=== PATIENT | female | born 1945 | race Caucasian/White ===

== ENCOUNTER 2024-02-23 13:15 | Inpatient (IN) | payer MEDICARE, BC, SELFPAY ==
[2024-02-23] VITALS (16 sets, daily range): BP systolic 95–175; BP diastolic 41–73
--- NOTE | 2024-02-23 07:30 | ED.GENMED ---
History of Present Illness
General
Chief Complaint: Flank Pain
Source: patient and spouse
Exam Limitations: none
Time Seen by Provider: 02/23/24 07:14
Nursing documentation reviewed up to this point in time: agreed with
History of Present Illness
History of Present Illness:
Patient is a 78-year-old female with history of hypertension, high cholesterol, cholecystectomy lung cancer status post left lobectomy completed radiation chemo currently on immunotherapy followed at the [facility] presents to the ER
complaining of pain. She reports she started with abdominal pain at 2 AM which is gotten worse. It does radiate to her back. She is nauseous and vomiting. She denies any recent illness fever chills. She denies any urinary frequency urgency or
dysuria. She has been constipated with moving her bowels. No prior history of renal stone.
Past History
Past History
ED Past Medical History: HTN, Hypercholesterolemia and Other (chronic cough)
Social History
Tobacco: Non-smoker
Alcohol: None
Drug: None
Review of Systems
Review of Systems
Allergies reviewed?: Yes
All Other Systems: ROS reviewed and negative except as documented in HPI and ROS
Constitutional: Reports no symptoms; Denies fever, fatigue or chills
Respiratory: Reports no symptoms
Cardiac: Reports no symptoms
ABD/GI: Reports abdominal pain, nausea and vomiting
: Reports other (abd pain radiates to back )
Musculoskeletal: Reports no symptoms
Skin: Reports no symptoms
Neurological: Reports no symptoms
Psychiatric: Reports no symptoms
Phy Exam
General Physical Exam
General Presentation: no apparent distress
General age: appears stated age
General Skin: warm and dry
General Habitus: normal
General Mental: alert
General Hydration: appears well hydrated
Cardiovascular Exam
Cardiovascular Exam: regular rate/rhythm, no murmur and normal peripheral pulses
Pulmonary Exam
Pulmonary Exam: lungs clear and no respiratory distress
Gastrointestinal Exam
Gastrointestinal Exam: soft and other (tender throughout right abdomen )
Neurological Exam
Neurological Exam: alert and oriented x3
Musculoskeletal Exam
Musculoskeletal Exam: full ROM
Skin Exam
Skin Exam: normal color and warm/dry
Psychiatric Exam
Psychiatric Exam: normal mood/affect
Course
Orders/Labs/Results
Orders:
Orders
02/23/24 07:26
IV Insert/Care/Rem.- Treatment PRN
Urinalysis Reflex To Culture Urgent
02/23/24 07:29
0.9% Sodium Chloride 1000 ml [Nss] 1,000 ml IV BOLUS
Morphine Sulfate 2 mg IV NOW STA
02/23/24 07:30
CT Abd/Pel (IV only)-DH only Urgent
Comment:
Reason For Exam: abd pain
02/23/24 07:37
Complete Blood Count/With Diff Urgent
Comprehensive Metabolic Panel Urgent
Lipase Urgent
02/23/24 08:04
Ketorolac [Toradol] 15 mg IV NOW STA
02/23/24 09:00
HYDROmorphone [Dilaudid] 0.5 mg IV NOW STA
Abnormal Lab Results
02/23/24
07:37
RBC 3.80 L 10^6/uL
(4.20-5.40)
Hct 35.1 L %
(37.0-47.0)
MCH 31.6 H pg
(27.0-31.0)
RDW 16.5 H %
(11.5-14.5)
Abs Immat Gran (auto) 0.1 H 10^3/uL
(0-0.05)
Absolute Neuts (auto) 9.0 H 10^3/uL
(1.4-6.5)
Absolute Lymphs (auto) 0.6 L 10^3/uL
(1.2-3.4)
Absolute Monos (auto) 0.7 H 10^3/uL
(0.1-0.6)
Neutrophils % 84.4 H %
(42.2-75.2)
Lymphocytes % 5.9 L %
(20.5-51.1)
BUN 20 H mg/dl
(7-17)
Glucose 152 H mg/dl
(70-99)
02/23/24 07:37
02/23/24 07:37
Vital Signs
Initial and Last Documented VS:
Initial Vital Signs
Temp Pulse Resp BP Pulse Ox
97.7 F 91 18 175/73 93
02/23/24 07:10 02/23/24 07:10 02/23/24 07:10 02/23/24 07:10 02/23/24 07:10
Last Documented Vital Signs
Temp Pulse Resp BP Pulse Ox
97.7 F 86 21 142/57 98
02/23/24 07:10 02/23/24 10:15 02/23/24 10:15 02/23/24 10:00 02/23/24 10:15
MDM/Problems Addressed
MDM/Problems Addressed:
Patient is a 78-year-old female with history of lung cancer currently immune therapy history of hypertension hyperlipidemia presents to the ER complaining of right-sided abdominal pain. She does feel pain radiating to her back. She denies any
fever chills and presents uncomfortable but afebrile. She is tender throughout the right lower and mid quadrant. Her white count is normal. CAT scan does show acute appendicitis with questionable extraluminal appendicolith would be compatible
with perforation there is no otherwise focal fluid collection or free air. Case reviewed with hospitalist and surgeon Dr. Reddy. Patient has been n.p.o. will continue n.p.o. order IV antibiotics.
Chronic conditions affecting care:
lung ca on immune therapy
*Radiology
Radiology exam reviewed: radiology read reviewed
*Pulse Oximetry
Patient hypoxic: no
*Critical Care Note
Total Time (30-74mins, 75-104mins- exclusive of procedures): Not Applicable
Patient Management
Discussion with other providers: Correctional Therapy Director (Surgery; Dr Reddy )
ED Attending Note
-
Portions of this chart may have been created with voice recognition software.� Occasional wrong word or��sound alike� substitutions may have occurred due to the inherent limitations of voice recognition software.
Discharge Plan
Departure
Patient Disposition: Admit
Date of Disposition: 02/23/24
Time of Disposition: 10:39
Admit to: Med/Surg
Admit to doctor: hospitalist
Presentation/result/management discussed w/ accepting MD/DO: Hospitalist
Patient with high blood pressure during this ER visit?: Yes
Condition: Fair
Covid-19: Not Applicable
Discharge Problem:
Acute appendicitis
Prescriptions:
No Action
atorvastatin 80 mg Tablet
80 mg PO DAILY
amlodipine 2.5 mg Tablet
5 mg PO DAILY
aspirin 81 mg Tablet,Delayed Release (Dr/Ec)
81 mg PO DAILY
losartan 100 mg Tablet
100 mg PO DAILY 30 Days Qty: 30 0RF
albuterol sulfate 90 mcg/actuation HFA aerosol inhaler
2 puff inhalation Q6H PRN (Reason: shortness of breath or wheezing) Qty: 8.5 0RF
furosemide 20 mg Tablet
20 mg PO DAILY
magnesium 100 mg Capsule
100 mg PO DAILY
vitamin B complex Capsule
1 cap PO DAILY
zinc 50 mg Capsule
50 mg PO DAILY
omega 1-myo-cxw-fish oil [Fish Oil] 60-90-500 mg Capsule
1 cap PO DAILY
Vitamin D3 100 mcg (4,000 unit) Capsule
100 mcg PO ONCE
Referrals:
Broderick James DO [Family Provider] -
Interventions
Interventions:
*Risk Screen - Suicide Last Done: 02/23/24 07:10
*General Assessment Last Done: 02/23/24 07:10
*Neglect/Abuse Screening Last Done: 02/23/24 07:10
ZF-Inaljs-Uvfyzqkgya Assessment Last Done: 02/23/24 08:29
ED-Female Genitourinary Assessment Last Done: 02/23/24 08:29
Discharge Date and Time
Print Language: TRISTANIAN
[2024-02-23] MEDS: MORPHINE SULFATE 2 MG IV (07:35)
[2024-02-23] MEDS: NSS 1000 IV (07:35)
[2024-02-23 07:47] LABS: % Basophils 0.6 % (0-2); % Eosinophils 1.8 % (0-6); % Immature Granulocytes 0.5 % (0-0.5); % Lymphocytes 5.9 % (20.5-51.1); % Monocytes 6.8 % (1.7-9.3); % Neutrophils 84.4 % (42.2-75.2); Absolute Basophils 0.1 10^3/uL (0-0.2); Absolute Eosinophils 0.2 10^3/uL (0-0.7); Absolute Immature Granulocytes 0.1 10^3/uL (0-0.05); Absolute Lymphocytes 0.6 10^3/uL (1.2-3.4); Absolute Monocytes 0.7 10^3/uL (0.1-0.6); Hematocrit 35.1 % (37.0-47.0); Mean Corp Hgb Conc. 34.2 g/dL (33.0-37.0); Mean Corpuscular Hgb 31.6 pg (27.0-31.0); Mean Corpuscular Volume 92.4 fL (81.0-99.0); Mean Platelet Volume 8.5 fL (7.4-10.4); Nucleated Red Blood Cells % 0 %; Platelet Count 199 10^3/uL (130-400); Red Cell Dist. Width 16.5 % (11.5-14.5); White Blood Cell Count 10.7 10^3/uL (4.8-10.8)
[2024-02-23 07:58] LABS: ALT (SGPT) 22 U/L (0-35); AST (SGOT) 32 U/L (14-36); Alkaline Phosphatase 79 U/L (38-126); Blood Urea Nitrogen 20 mg/dl (7-17); Calcium 9.6 mg/dl (8.4-10.2); Carbon Dioxide 24 mmol/L (22-30); Chloride 104 mmol/L (98-107); Glucose 152 mg/dl (70-99); Lipase 199 U/L (23-300); Potassium 4.5 mmol/L (3.5-5.1); Sodium 138 mmol/L (135-145); Total Bilirubin 0.5 mg/dl (0.2-1.3); Total Protein 6.4 g/dl (6.3-8.2); eGFR > 60.00
[2024-02-23] MEDS: TORADOL 15 MG IV (08:15)
[2024-02-23] MEDS: DILAUDID 0.5 MG IV (09:05)
[2024-02-23] MEDS: NSS 500 IV (11:32)
[2024-02-23] MEDS: ZOSYN 50 IV ×2 (11:32→18:09)
--- NOTE | 2024-02-23 11:36 | HPS.HSE ---
Family Physician
-
Family Physician: Broderick James
Chief Complaint
-
Abdominal pain
History of Present Illness
78-year-old female who was in her usual state of health up until 2 AM when she had sudden onset of abdominal pain. Pain gradually worsened over the ensuing few hours and she came into the emergency room this morning for evaluation. Was feeling
fine yesterday. Has never had pain like this before. The pain radiates to her right flank.
Associated nausea but no vomiting. Occasional constipation. Last bowel movement was yesterday.
Medical History
Past Medical History
Past Medical History: Reports Other
Additional Past Medical History:
Squamous cell lung cancer on immunotherapy
Essential hypertension
Hyperlipidemia
Past Surgical History: Reports Other
Additional Past Surgical History:
Left lobectomy
Cholecystectomy
Social History
Tobacco: Former Smoker
Alcohol: None
Drug: None
Personal:
Living: With Family
Family History
Family History: Not pertinent
Allergies / Home Medications
Allergies reflects when Allergies were last updated in [employer].
Home Medications with original date entered in [employer]
Allergy/Medication List:
Allergies
Allergy/AdvReac Type Severity Reaction Status Date / Time
No Known Allergies Allergy Verified 01/01/23 07:29
Home Medications
aspirin 81 mg tablet,delayed release 81 mg PO DAILY 11/08/22
atorvastatin 80 mg tablet 80 mg PO QPM 11/08/22
losartan 100 mg tablet 100 mg PO DAILY 30 days #30 tabs 11/10/22
furosemide 20 mg tablet 20 mg PO DAILY 01/01/23
amlodipine 5 mg tablet (Norvasc) 5 mg PO DAILY 02/23/24
levothyroxine 75 mcg tablet (Synthroid) 75 mcg PO DAILY 02/23/24
therapeutic multivitamin 1 tab PO DAILY 02/23/24
umeclidinium 62.5 mcg-vilanterol 25 mcg/actuation powdr for inhalation (Anoro Ellipta) 1 inh inhalation R DAILY 02/23/24
Review of Systems
-
History Source: Patient
A 12 point ROS was completed and negative except as noted: Yes
Physical Exam
Vital Signs
Vital Signs
Temp Pulse Resp BP Pulse Ox
97.7 F 89 21 110/51 97
02/23/24 07:10 02/23/24 11:30 02/23/24 11:30 02/23/24 11:00 02/23/24 11:30
Physical Exam
General: Well Developed, Well Nourished, Appears in Distress and Pain
HEENT: NormoCephalic and Anicteric; No Moist mucous membranes
Respiratory: Clear
Cardiac: S1/S2 and Regular Rhythm
Breast: Deferred by me
GI: Soft, Non Distended and Tender (Tender in the right lower quadrant with some voluntary guarding)
Genito-urinary: Deferred by me
Musculoskeletal: No Clubbing, No Cyanosis and No Edema
Skin: Warm and Dry
Neuro: AO x 3
Hematologic/Lymphatic: No Lymphadenopathy
Psych: Calm
Laboratory Results
-
02/23/24 07:37
02/23/24 07:37
Laboratory Results
Total Bilirubin 0.5 mg/dl (0.2-1.3) 02/23/24 07:37
AST 32 U/L (14-36) 02/23/24 07:37
ALT 22 U/L (0-35) 02/23/24 07:37
Alkaline Phosphatase 79 U/L (38-126) 02/23/24 07:37
Lipase 199 U/L (23-300) 02/23/24 07:37
Impression/Plan
-
Acute perforated appendicitis -admit to [facility]. Consult general surgery. Keep n.p.o. for anticipated appendectomy today. Continue IV Zosyn. Hemodynamically stable. Does not appear septic.
Appears to be at acceptable risk for surgery.
Patient states she had a stress test about 3 years ago that was normal. Done for screening purposes.
Essential hypertension -resume losartan, hold furosemide.
Hyperlipidemia -on atorvastatin.
Hypothyroidism -continue levothyroxine.
Squamous cell lung cancer -currently on immunotherapy. Prior left lobectomy.
COPD without exacerbation -stable. She is on Anora Ellipta at home.
Obesity due to excess calories
Full code
Family updated at the bedside.
--- NOTE | 2024-02-23 13:08 | W.IMMPOSTOP ---
Addendum entered and electronically signed by Bairon Reddy MD 02/23/24 13:13:
Will stay minimum 1 night due to purulence and inflamed small bowel - risk of ileus.
Will start CLD this alejo, await ROBF prior to advancing diet.
Recommend minimum 7 days total abx coverage given purulence.
Eric Suárez updated by phone: [phone]
Original Note:
Surgical Immed Post Op Note
-
Primary Surgeon: Barry
Pre-op Diagnosis: Acute appendicitis
Post-op Diagnosis: Same
Procedure Performed: Laparoscopic appendectomy
Anesthesia Type: GETA
Specimen / Cultures: Appendix
Estimated Blood Loss: 2cc
Complications: None immediate
Operative Findings: Pus in the right lower quadrant, inflamed hyperemic distal small bowel; no obvious perforation or stool contamination
--- NOTE | 2024-02-23 13:09 | OR.RPT ---
Operative Report
Operative Report
Primary Surgeon: Barry
Pre-op Diagnosis: Acute appendicitis
Post-op Diagnosis: Same
Procedure Performed: Laparoscopic appendectomy
Anesthesia Type: GETA
Specimen / Cultures: Appendix
Estimated Blood Loss: 2cc
Complications: None immediate
Operative Findings: Pus in the right lower quadrant, inflamed hyperemic distal small bowel; no obvious perforation or stool contamination
Date of Surgery: 02/23/24
Indications: This 78F developed right lower quadrant abdominal pain and on workup was found to have acute appendicitis. Laparoscopic appendectomy was elected.
Description of procedure: The patient was placed on the operating table in the supine position. General anesthesia was induced. A time-out was completed verifying correct patient, procedure, site, positioning, and special equipment prior to
beginning this procedure. An orogastric tube was placed. The abdomen was prepped and draped in the usual sterile fashion. A stab incision was made in left upper quadrant and the Veress needle was inserted. Proper position was confirmed by aspiration
and saline meniscus test. The abdomen was insufflated with carbon dioxide to a pressure of 12 mmHg. The patient tolerated insufflation well.
A 5mm optical trocar was then inserted at the left lower quadrant. The laparoscope was inserted and the abdomen inspected. No injuries from initial trocar placement or Veress needle insertion were noted. Additional trocars were then inserted in the
following locations: a 12-mm trocar at the umbilicus and a 5-mm trocar midline in the suprapubic space. The abdomen was inspected and no abnormalities were found. The table was placed in the Trendelenburg position with the right side up. Pus was
found in the right lower quadrant, and the small bowel in the area was hyperemic and inflamed but viable and not dilated. The tip of the appendix was gently grasped with an atraumatic grasper and retracted toward the patient�s feet and abdominal
wall. This maneuver exposed the appendiceal blood supply which was controlled with the Ligasure device. Following this, a laparoscopic linear cutting stapler with a 45mm babin load was deployed and used to transect the appendix at its base. The
appendix was placed in an endoscopic retrieval bag, removed through the umbilical port, and passed off the table as a specimen.
We then turned our attention to the staple line, which was noted to be hemostatic. All pus fluid was suctioned from the right lower quadrant and the pelvis. The umbilical trocar site was closed at the fascial level laparoscopically with 2-0 PDS
under direct vision. Secondary trocars were removed under direct vision and noted to be hemostatic. The laparoscope was withdrawn and the abdomen was allowed to collapse. The skin was closed with subcuticular sutures of 4-0 monocryl and topical skin
adhesive. The orogastric tube was removed.
The patient tolerated the procedure well and was taken to the postanesthesia care unit in stable condition.
--- NOTE | 2024-02-23 13:14 | CON.GS ---
Consultation
-
Requesting Provider: Jesusita
Performing Provider: Barry
Reason for Consultation: Acute appendicitis
Medical History
-
Chief Complaint: Abd pain
History of Present Illness:
78F with acute onset abd pain that began at 2AM last night, localized to right lower quadranbt, severe and progressive. Reports radiation around the right flank. Endorses nausea, denies vomiting. Denies f/c. Last BM yesterday. Baseline constipation.
Past Medical History
Past Medical History: Other (Squamous cell lung cancer on immunotherapy Essential hypertension Hyperlipidemia)
Past Surgical History: Other (Left lobectomy Cholecystectomy)
Social History
Tobacco: Former Smoker
Alcohol: None
Drug: None
Personal:
Living: With Family
Family History
Family History: Reviewed & Noncontributory
Allergies / Home Medications
Allergy/AdvReac Type Severity Reaction Status Date / Time
No Known Allergies Allergy Verified 01/01/23 07:29
�Medication �Instructions �Recorded �Confirmed �Type
aspirin 81 mg tablet,delayed 81 mg PO DAILY 11/08/22 02/23/24 History
release
atorvastatin 80 mg tablet 80 mg PO QPM 11/08/22 02/23/24 History
losartan 100 mg tablet 100 mg PO DAILY 30 days #30 tabs 11/10/22 02/23/24 Rx
furosemide 20 mg tablet 20 mg PO DAILY 01/01/23 02/23/24 History
amlodipine 5 mg tablet (Norvasc) 5 mg PO DAILY 02/23/24 02/23/24 History
levothyroxine 75 mcg tablet 75 mcg PO DAILY 02/23/24 02/23/24 History
(Synthroid)
therapeutic multivitamin 1 tab PO DAILY 02/23/24 02/23/24 History
umeclidinium 62.5 mcg-vilanterol 1 inh inhalation R DAILY 02/23/24 02/23/24 History
25 mcg/actuation powdr for
inhalation (Anoro Ellipta)
Review of Systems
-
A 10 point review of systems was completed, and was negative except as per HPI.
Physical Exam
Vital Signs
Temp Pulse Resp BP Pulse Ox
97.7 F 89 21 110/51 97
02/23/24 07:10 02/23/24 11:30 02/23/24 11:30 02/23/24 11:00 02/23/24 11:30
02/22/24 02/23/24 02/24/24
06:59 06:59 06:59
Actual Weight 81 kg
Body Mass Index (BMI) 0.0
Lab Results
02/23/24 07:37
02/23/24 07:37
WBC 10.7 10^3/uL (4.8-10.8) 02/23/24 07:37
Hgb 12.0 g/dL (12.0-16.0) 02/23/24 07:37
Hct 35.1 % (37.0-47.0) L 02/23/24 07:37
Plt Count 199 10^3/uL (130-400) 02/23/24 07:37
Abs Immat Gran (auto) 0.1 10^3/uL (0-0.05) H 02/23/24 07:37
Neutrophils % 84.4 % (42.2-75.2) H 02/23/24 07:37
Physical Exam
General: No Apparent Distress
Respiratory: Clear
GI: Soft, Non Distended, Tender (RLQ ttp) and Obese
Skin: Warm and Dry
Neuro: AO x 3
Psych: Calm
Data Reviewed
-
CT Scan: Image Personally Visualized and interpreted, Report Reviewed by me, Discussed with Patient and Discussed with Family
Labs: Labs Reviewed by me
Old Records: Reviewed
Assessment / Plan
-
78F with acute appendicitis
TTP to RLQ
AFVSS, no leukocytosis
CT c/w acute appendicitis with ? perforation without fluid collection or free air
Plan:
OCTOR for lap appy
IV abx
Hospitalist admission
--- NOTE | 2024-02-23 15:15 | PTCARENOTE ---
Pt received from the PACU via bed. Transport was w/o incident. Pt is AAOx3, HRR w/ murmur, Left lung reynoso w/ minimal BS(hx of partial lobectomy), Right lung reynoso clear, abd round, obese w/ 4 Lap sites, well approximated, scant bloody drainage
noted from middle lap site upon arrival, although no current bleeding noted at present. VSS, Pt is afebrile. Pt instructed on plan of care, Pt verbalized understanding of instructions, call sandra is within reach.
[2024-02-23] MEDS: LIPITOR 80 MG PO (18:09)
[2024-02-23] MEDS: ROXICODONE 5 MG PO (18:09)
[2024-02-23] MEDS: LOVENOX 40 MG SC (18:09)
[2024-02-24] MEDS: ZOSYN 50 IV ×5 (00:10→23:05)
[2024-02-24 04:00] VITALS: BP 117/60
[2024-02-24] MEDS: SYNTHROID 75 MCG PO (05:14)
[2024-02-24] MEDS: ROXICODONE 5 MG PO ×2 (05:20→15:50)
[2024-02-24 05:31] VITALS: BMI 32.4
--- NOTE | 2024-02-24 06:30 | W.PN.GS2 ---
Addendum entered and electronically signed by Bairon Reddy MD 02/29/24 13:00:
CDI query: pt has localized peritonitis
Addendum entered and electronically signed by Davion Joseph MD 02/24/24 13:08:
Patient seen and examined.
Patient reports abdominal tenderness primarily around incisions as well as some bloating. No flatus or BM. No nausea or vomiting. Minimal ambulation. Voiding. Afebrile.
Gen: NAD
Abd: soft, tender diffusely, mild distension, non-peritoneal, incisions c/d/i - no erythema, or drainage, mild ecchymosis
Patient is a 78 yo F with POD#1 s/p laparoscopic appendectomy.
AVSS
Labs reviewed
Recovering well overall. Increased risk for ileus given degree of appendicitis and irritation of adjacent small bowel. Plan for slow dietary advancement and close monitoring. No plans for discharge today.
Plan:
--Trial of fulls
--Pain control: Tylenol, Toradol, Oxycodone
--Abx: IV Zosyn, will be changed to PO Augmentin upon discharge. Planned course for 7 days post op.
--Awaiting return of bowel function, counseled patient importance of ambulation to help stimulate bowel
--Anti-emetic/pain medicine as needed
--Home medications
--DVT Prophylaxis: Lovenox
Original Note:
Today's Communication / Plan
-
Patient to be advanced to full liquid diet and monitored for any advance in bowel function.
Assessment / Plan
-
Assessment:
78yo F with Acute Appendicitis POD#1 following Laparoscopic appendectomy. Procedure went well and appendix was successfully extracted. Pus and highly inflamed small bowels were found during surgery with no obvious perforation or stool contamination.
CT 02/22 showed acute appendicitis with possible perforation without fluid collection or free air
Plan:
AFVSS, no leukocytosis
--Patient tolerated clear liquid diet last night with no nausea or vomiting, advanced to full liquid today as she is still a bit distended
--Leukocytosis has resolved, patient to continue on antibiotics due to operative findings
--Currently on IV Zosyn, will be changed to PO Augmentin upon discharge. Planned course for 7 days post op.
--Awaiting return of bowel function, counseled patient importance of ambulation to help stimulate bowel
--Anti-emetic/pain medicine as needed -> patient hesitant about oxycodone use due to increased constipation in the past, Toradol 15mg q6 as needed for pain
DVT Prophylaxis: Lovenox
Subjective Data
-
Date of Service: February 24, 2024
Patient says that she has a lot of abdominal tenderness post surgery with pain mainly around her incision sites. Patient has not had a bowel movement since the surgery and has not been passing flatus. She is worried about being constipated due to
her pain meds as it has happened in the past after her previous surgeries.
Objective Data
-
Intake and Output
02/22/24 02/23/24 02/24/24
06:59 06:59 06:59
Intake Total 1919
Balance 1919
Intake:
Oral fluids 1620 / 1620
IV fluids (Total) 200 / 200
normosol 200 / 200
IV piggybacks 100 / 100
Other:
Number of approximated MODERATE 1
amounts of urine
Number of approximated LARGE 1
amounts of urine
Vital Signs
Temp Pulse Resp BP Pulse Ox
99.1 F 76 24 117/60 92
02/24/24 04:00 02/24/24 04:00 02/24/24 04:00 02/24/24 04:00 02/24/24 04:00
Lab Results
02/23/24 07:37
02/23/24 07:37
Calcium 9.6 mg/dl (8.4-10.2) 02/23/24 07:37
Total Bilirubin 0.5 mg/dl (0.2-1.3) 02/23/24 07:37
AST 32 U/L (14-36) 02/23/24 07:37
ALT 22 U/L (0-35) 02/23/24 07:37
Alkaline Phosphatase 79 U/L (38-126) 02/23/24 07:37
Total Protein 6.4 g/dl (6.3-8.2) 02/23/24 07:37
Albumin 4.0 g/dl (3.5-5.0) 02/23/24 07:37
Physical Exam
-
Gen: NAD
Abd: soft, mildly distended, tenderness mainly around incision sites, incisions non-erythematous and non-draining
[2024-02-24 08:00] VITALS: BP 121/50
[2024-02-24] MEDS: SPIRIVA RESPIMAT 2.5 MCG 2 PUFF INH (08:37)
[2024-02-24] MEDS: STRIVERDI RESPIMAT 2 PUFF INH (08:37)
[2024-02-24] MEDS: COZAAR 100 MG PO (09:00)
[2024-02-24] MEDS: THERAGRAN 1 TABLET PO (09:00)
[2024-02-24] MEDS: NORVASC 5 MG PO (09:00)
[2024-02-24] MEDS: ASPIR LOW (ENTERIC COATED) 81 MG PO (09:00)
[2024-02-24] MEDS: TYLENOL 650 MG PO ×2 (09:01→23:07)
[2024-02-24] MEDS: TORADOL 15 MG IV ×2 (11:14→19:55)
--- NOTE | 2024-02-24 11:19 | W.PN.HOSP.TC ---
Today's Communication/Plan
-
Continue current care
Assessment / Plan
Assessment / Plan
Gen-AAOx3, NAD
HEENT-NC, AT, anicteric, clear oral mm
Neck-supple
CV-reg, no M, +S1/S2
Lungs-clear B/L
Abd-soft, NT, ND
Ext-no edema
Musculoskeletal-no cyanosis, clubbing
Skin-warm and dry
Neuro-grossly non-focal
Psych-calm, cooperative
Acute perforated appendicitis -medically stable after appendectomy 02/22. Diet advanced to full liquids by surgical service. Continue IV Zosyn, transition to Augmentin on discharge. Surgery recommends 7 days of antibiotics total. Pus noted in the
OR in the right lower quadrant. Perforation not noted.
Await return of bowel function. Continue ambulation. Continue incentive spirometer. Discussed with patient and family.
Essential hypertension -resume losartan, hold furosemide.
Hyperlipidemia -on atorvastatin.
Hypothyroidism -continue levothyroxine.
Squamous cell lung cancer -currently on immunotherapy. Prior left lobectomy.
COPD without exacerbation -stable. She is on Anora Ellipta at home.
Obesity due to excess calories
Full code
Family updated at the bedside.
Anticipated Discharge: Within 24 hours
Subjective/Interval History
-
Date of Service: February 24, 2024
Patient seen and examined. Complaining of some abdominal discomfort and bloating. Has not had a bowel movement yet, is not passing gas yet. Tolerated clears.
Objective Data
-
Vital Signs:
Vital Signs
Temp Pulse Resp BP Pulse Ox
98.4 F 78 18 121/50 96
02/24/24 08:00 02/24/24 08:40 02/24/24 08:40 02/24/24 08:00 02/24/24 08:40
I&O
02/23/24 02/24/2424
06:59 06:59 06:59
Intake Total 1919
Balance 1919
Review of Systems
-
History Source: Patient
All other systems: Reviewed and negative
[2024-02-24 11:50] VITALS: BP 115/48
--- NOTE | 2024-02-24 16:17 | CM ---
Addendum entered by Nicole Silverman 02/24/24 16:21:
No history of SNF
Home Health with [facility] in 2022
Original Note:
Met with patient and her son at bedside; initial assessment completed
Pharmacy verified: [facility] @ [address] [place] [address]
Patient and spouse live in a 3 story home; no steps to enter; 12 steps between floors; powder room on 1st floor; master bath has stall shower
PLOF: independent with ambulation, stairs, and ADLs
DME: [employer]
Son or will transport home
Plan: discharge to home when medically stable; no needs anticipated
[2024-02-24 16:49] VITALS: BP 124/51
[2024-02-24] MEDS: LOVENOX 40 MG SC (18:16)
[2024-02-24] MEDS: LIPITOR 80 MG PO (18:18)
[2024-02-24 23:58] VITALS: BP 145/60
[2024-02-25] MEDS: ZOSYN 50 IV ×2 (05:06→11:51)
[2024-02-25] MEDS: SYNTHROID 75 MCG PO (05:07)
[2024-02-25 05:11] VITALS: BMI 32.5
[2024-02-25] MEDS: TORADOL 15 MG IV (05:17)
[2024-02-25 07:32] VITALS: BP 123/54
--- NOTE | 2024-02-25 08:12 | PN.CDI ---
CDI
- -
CDI:
Physician Documentation Request
Admit Date: 02/23/24 13:15
Dear Doctor Barry,
Please review the following and provide your response in the progress notes.
Clinical Indicators:
02/22 Laparoscopic Appendectomy
#Operative Findings:
#Pus in the right lower quadrant, inflamed hyperemic distal small bowel;
#...no obvious perforation or stool contamination
PN, 02/23
#--Abx: IV Zosyn, will be changed to PO Augmentin upon discharge.
#Planned course for 7 days post op.
PN, 02/23
#Acute perforated appendicitis -medically stable after appendectomy 02/22.
#Continue IV Zosyn, transition to Augmentin on discharge.
#...Surgery recommends 7 days of antibiotics total.
#...Pus noted in the OR in the right lower quadrant.
#...Perforation not noted.
i
Please provide a diagnosis for the above findings / treatment with IV Zosyn...:
Localized peritonitis
Generalized peritonitis
Abcess(specify location)
Other(please specify)
Use of terms such as suspected, likely, concern for, or probable (associated with a specific diagnosis that is being evaluated, monitored, or treated as if it exists) are acceptable and can be coded in the inpatient setting, when documented at the
time of discharge.
Thank you,
Ni Velarde RN BSN CCDS
CDI Specialist
please contact via tiger text
Please use your independent medical judgment in providing your response.
[2024-02-25] MEDS: MIRALAX 17 GRAMS PO (08:16)
[2024-02-25] MEDS: THERAGRAN 1 TABLET PO (08:17)
[2024-02-25] MEDS: ASPIR LOW (ENTERIC COATED) 81 MG PO (08:17)
[2024-02-25] MEDS: COZAAR 100 MG PO (08:17)
[2024-02-25] MEDS: NORVASC 5 MG PO (08:17)
[2024-02-25] MEDS: SPIRIVA RESPIMAT 2.5 MCG 2 PUFF INH (08:24)
[2024-02-25] MEDS: STRIVERDI RESPIMAT 2 PUFF INH (08:24)
--- NOTE | 2024-02-25 08:59 | W.PN.GS2 ---
Addendum entered and electronically signed by Julio Croft MD 02/25/24 09:43:
I saw and examined the patient independently.
The resident's note was reviewed and I agree with the note, assessment and plan except where noted below.
Comment: This is a 78-year-old female postoperative day 2 from a laparoscopic appendectomy for acute appendicitis. Expected postop ileus now resolving but still distended on exam.
Will continue full liquid diet for now, can advance to a low residue diet today versus tomorrow depending on clinical course.
Continue IV Zosyn, can switch to p.o. Augmentin on discharge will plan for a 7-day course.
MiraLAX, the patient should continue this on discharge given her baseline constipation.
Minimize narcotics as able.
Anticipate discharge home tomorrow though she may be able to leave today if she continues to improve clinically.
All questions answered, patient and son at bedside agreeable to plan of care above.
General surgery will continue to follow.
Original Note:
Today's Communication / Plan
-
Patient to continue with Full Liquid Diet. Will continue monitoring for return of bowel function.
Assessment / Plan
-
Assessment:
78yo F with Acute Appendicitis POD#2 following Laparoscopic appendectomy. Procedure went well and appendix was successfully extracted. Pus and highly inflamed small bowels were found during surgery with no obvious perforation or stool contamination.
Patient continues to feel constipated and has not had a bowel movement. Patient tolerating full liquid diet with no nausea or vomiting.
CT 02/22 showed acute appendicitis with possible perforation without fluid collection or free air
Plan:
AFVSS, no leukocytosis
--Patient tolerating full liquid diet, will continue with current diet for now, most likely advance diet tomorrow as her condition improves
--Leukocytosis has resolved, patient to continue on antibiotics due to operative findings
--Currently on IV Zosyn, will be changed to PO Augmentin upon discharge. Planned course for 7 days post op.
--Awaiting return of bowel function, counseled patient importance of ambulation to help stimulate bowel
--Anti-emetic/pain medicine as needed -> patient hesitant about oxycodone use due to increased constipation in the past, Toradol and Tylenol as needed for pain, discontinued Oxycodone
--Patient given Miralax to help with her constipation
DVT Prophylaxis: Lovenox
Subjective Data
-
Date of Service: February 25, 2024
Patient says that she has been passing gas but has not had any bowel movements in around 4 days. She has been tolerating the full liquid diet and reports no nausea or vomiting. Patient has been ambulating regularly and reports mild pain around her
incision sites.
Objective Data
-
Intake and Output
02/24/24 02/25/24 02/26/24
06:59 06:59 06:59
Intake Total 1920 / 1920 1540 / 1540
Balance 1920 / 1920 1540 / 1540
Intake:
Oral fluids 1620 / 1620 1440 / 1440
IV fluids (Total) 200 / 200
normosol 200 / 200
IV piggybacks 100 / 100 100 / 100
Other:
Number of approximated MODERATE 1 2
amounts of urine
Number of approximated LARGE 1 1
amounts of urine
Vital Signs
Temp Pulse Resp BP Pulse Ox
98.4 F 66 16 145/60 95
02/25/24 07:32 02/25/24 08:28 02/25/24 08:28 02/24/24 23:58 02/25/24 08:28
Lab Results
02/23/24 07:37
02/23/24 07:37
Calcium 9.6 mg/dl (8.4-10.2) 02/23/24 07:37
Total Bilirubin 0.5 mg/dl (0.2-1.3) 02/23/24 07:37
AST 32 U/L (14-36) 02/23/24 07:37
ALT 22 U/L (0-35) 02/23/24 07:37
Alkaline Phosphatase 79 U/L (38-126) 02/23/24 07:37
Total Protein 6.4 g/dl (6.3-8.2) 02/23/24 07:37
Albumin 4.0 g/dl (3.5-5.0) 02/23/24 07:37
Physical Exam
-
Gen: NAD
Abd: soft, mildly distended, mild tenderness around incision sites, incision sites dry and non erythematous without drainage
--- NOTE | 2024-02-25 10:38 | W.PN.HOSP.TC ---
Addendum entered and electronically signed by Frank Martinez DO 02/25/24 12:30:
Surgical service okay with discharge today. Outpatient follow-up. Bowel regimen on discharge.
Original Note:
Today's Communication/Plan
-
Continue current care
Assessment / Plan
Assessment / Plan
Gen-AAOx3, NAD
HEENT-NC, AT, anicteric, clear oral mm
Neck-supple
CV-reg, no M, +S1/S2
Lungs-clear B/L
Abd-soft, NT, ND
Ext-no edema
Musculoskeletal-no cyanosis, clubbing
Skin-warm and dry
Neuro-grossly non-focal
Psych-calm, cooperative
Acute perforated appendicitis -medically stable after appendectomy 02/22. Diet advanced to full liquids by surgical service. Continue IV Zosyn, transition to Augmentin on discharge. Surgery recommends 7 days of antibiotics total. Pus noted in the
OR in the right lower quadrant. Perforation not noted.
Await return of bowel function. Continue ambulation. Continue incentive spirometer. Discussed with patient and family. Opiates discontinued. MiraLAX started.
Essential hypertension -continue losartan, hold furosemide.
Hyperlipidemia -on atorvastatin.
Hypothyroidism -continue levothyroxine.
Squamous cell lung cancer -currently on immunotherapy. Prior left lobectomy.
COPD without exacerbation -stable. She is on Anora Ellipta at home.
Constipation -recommend high-fiber diet, Colace, MiraLAX daily. Discussed with patient.
Obesity due to excess calories
Full code
Dispo -can discharge when cleared by surgical service.
Family updated at the bedside.
Anticipated Discharge: Within 24 hours
Subjective/Interval History
-
Date of Service: February 25, 2024
Patient seen and examined. Complaining of abdominal bloating, no bowel movement so far.
Objective Data
-
Vital Signs:
Vital Signs
Temp Pulse Resp BP Pulse Ox
98.4 F 66 16 145/60 95
02/25/24 07:32 02/25/24 08:28 02/25/24 08:28 02/24/24 23:58 02/25/24 08:28
I&O
02/24/24 02/25/24 02/26/24
06:59 06:59 06:59
Intake Total 1919 1540 / 1540
Balance 1919 1540 / 1540
Review of Systems
-
History Source: Patient
All other systems: Reviewed and negative
[2024-02-25] MEDS: TYLENOL 650 MG PO (11:51)
--- NOTE | 2024-02-25 12:30 | W.DS.TRANS ---
DC Summary - Log Check Scaler
-
Discharge Instructions:
Discharge Diagnosis/Procedures Acute appendicitis, laparoscopic appendectomy
Diet No restrictions
Additional Diets Eat small light meals until you feel less
bloated and are passing stools regularly
Activity No strenuous activity
Driving Restrictions No driving for 24 hours
Bathing Restrictions OK to Shower
Wound Care Allow skin glue to flake off on its own.
Instructions: Appendectomy, Laparoscopic Surgery (DC)
Stand-Alone Forms:
Changes to Home Medications: No
Discharge Medications:
DC Medications w/original date entered in [employer]
aspirin 81 mg tablet,delayed release 81 mg PO DAILY Blood Clot Prevention/Tx 11/08/22
atorvastatin 80 mg tablet 80 mg PO QPM High Cholesterol 11/08/22
losartan 100 mg tablet 100 mg PO DAILY 30 days #30 tabs 11/10/22
furosemide 20 mg tablet 20 mg PO DAILY Fluid Retention/Swelling 01/01/23
amlodipine 5 mg tablet (Norvasc) 5 mg PO DAILY Blood Pressure 02/23/24
levothyroxine 75 mcg tablet (Synthroid) 75 mcg PO DAILY Thyroid 02/23/24
therapeutic multivitamin 1 tab PO DAILY Supplement 02/23/24
umeclidinium 62.5 mcg-vilanterol 25 mcg/actuation powdr for inhalation (Anoro Ellipta) 1 inh inhalation R DAILY Lung/Breathing Issues 02/23/24
amoxicillin 875 mg-potassium clavulanate 125 mg tablet 1 tab PO BID #10 tabs 02/25/24
polyethylene glycol 3350 17 gram oral powder packet (HealthyLax) 17 g PO DAILY #0 ea 02/25/24
Home Medication Changes
Pending Results: No
--- NOTE | 2024-02-25 12:31 | CM ---
Addendum entered by Nicole Silverman 02/25/24 13:50:
Plan: discharged to home today; PT recommended Outpatient therapy and issued a rolling walker
Son will transport home
Original Note:
Met with patient and son at bedside to discuss discharge planning
Patient ambulating with a walker; son thinks that mother may need a walker at home. Attending notified; requested PT assessment before discharge
[2024-02-25 13:38] VITALS: BP 137/55
== END 2024-02-25 14:09 | disposition home or self-care (01) | DRG 398 ==
LOC: 2 SOUTH 13:15
PROVIDERS: Nurse Practitioner; ADMITTING PHYSICIAN Hospitalist; CONSULT PHYSICIAN Surgery; EMERGENCY PHYSICIAN Emergency Medicine; FAMILY PHYSICIAN Family Medicine
PROC: 0DTJ4ZZ Resection of Appendix, Percutaneous Endoscopic Approach (ICD-10-PCS; 2024-02-23)
DX: K35.32 Acute appendicitis with perforation, localized peritonitis, and gangrene, without abscess (principal); C34.90 Malignant neoplasm of unspecified part of unspecified bronchus or lung; K91.89 Other postprocedural complications and disorders of digestive system; Z87.891 Personal history of nicotine dependence; I10 Essential (primary) hypertension; E78.00 Pure hypercholesterolemia, unspecified; E03.9 Hypothyroidism, unspecified; J44.9 Chronic obstructive pulmonary disease, unspecified; Z68.32 Body mass index [BMI] 32.0-32.9, adult; E66.09 Other obesity due to excess calories
CPT/HCPCS: 88304; 74177; 80053; 83690; 85025; 94640; 96361; 96374; 96375; 97162; 99285; C1776; Q9967

== ENCOUNTER → 2024-06-28 15:04 | Outpatient (REF) | payer MEDICARE, BC, SELFPAY | LOC: HWRCS 15:04 | PROVIDERS: ATTENDING PHYSICIAN Student in an Organized Health Care Education/Training Program; FAMILY PHYSICIAN Family Medicine | DX: I35.1 Nonrheumatic aortic (valve) insufficiency (principal) | CPT/HCPCS: 93306 ==